=== PATIENT | female | born 1995 | race Caucasian/White ===

== ENCOUNTER 2017-02-15 11:49 | Emergency (ER) | payer OTHER ==
[~2017-02-15] VITALS: Ht 160 cm; Wt 63.6 kg
[~2017-02-15 11:49] MED LIST: ATIVAN 0.50.5 MG/TAB PO; NECON 0.5/35 351 TAB PO
[2017-02-15 11:50] VITALS: BP 131/72; TEMP 98.1
[2017-02-15 13:32] VITALS: PULSE 79
== END 2017-02-15 13:33 | disposition home or self-care (01) ==
LOC: COL.ER 11:49
DX: T78.40XA Allergy, unspecified, initial encounter (principal); L29.9 Pruritus, unspecified; R21 Rash and other nonspecific skin eruption
CPT/HCPCS: J1100; J1200